=== PATIENT | male | born 1935 | race Two or more races ===

== ENCOUNTER 2016-06-02 20:55 | Emergency (ER) | payer MEDICARE, OTHER ==
[~2016-06-02] VITALS: Ht 170.2 cm; Wt 65.8 kg
[2016-06-02] MEDS ORDERED: IV NORMAL SALINE 1000 ML BAG IV ONE (21:15)
[2016-06-02 21:38] LABS: CALCIUM 7.4 mg/dL (8.5-10.1); CREATININE 1.5 mg/dL (0.6-1.3); POTASSIUM 3.7 mmol/L (3.5-5.1)
[2016-06-02 21:40] LABS: BASOPHILS % (AUTO) 0.1 % (0.0-2.0); EOSINOPHILS # (AUTO) 0.1 K/uL (0.0-0.7); EOSINOPHILS % (AUTO) 0.5 % (0.0-7.0); HEMATOCRIT 29.9 % (40.0-50.0); LYMPHOCYTES % (AUTO) 15.9 % (20.5-51.5); MEAN CORPUSCULAR HEMOGLOBIN 33.4 uug (27.0-31.0); MEAN CORPUSCULAR HGB CONC 34 % (32.0-37.0); MEAN CORPUSCULAR VOLUME 99.7 fL (82.0-92.0); MONOCYTES # (AUTO) 0.9 K/uL (0.1-1.30); MONOCYTES % (AUTO) 7.5 % (0.0-11.0); NEUTROPHILS # (AUTO) 9.3 K/uL (1.8-8.9); PLATELET COUNT (AUTO) 158 K/uL (150-450); RED CELL DISTRIBUTION WIDTH 14.9 % (11.5-14.5); WHITE BLOOD COUNT (AUTO) 12.3 K/uL (4.0-11.2)
[2016-06-02 21:44] LABS: ALBUMIN 2.3 g/dL (3.4-5.0); BILIRUBIN,TOTAL 0.2 mg/dL (0.2-1.0); TOTAL PROTEIN, SERUM 5.6 g/dL (6.4-8.2)
[2016-06-02 21:45] LABS: TROPONIN I < 0.017 ng/mL (0.00-0.056)
[2016-06-02 21:56] LABS: LACTIC ACID 1.1 mmol/L (0.4-2.0)
[2016-06-02] MEDS ORDERED: IOHEXOL 300MG/ML 100 ML INFUS..BTL ONE (22:11)
[2016-06-02] MEDS ORDERED: IV NORMAL SALINE 250 ML IV ONE (22:11)
[2016-06-02] MEDS ORDERED: NORMAL SALINE FLUSH 10 ML DISP.SYRIN ONE (22:11)
[2016-06-02] MEDS ORDERED: METF500T4 PO (22:14)
[2016-06-02] MEDS ORDERED: FOLI1TAB16 PO (22:14)
[2016-06-02] MEDS ORDERED: METO-304 PO (22:14)
[2016-06-02] MEDS ORDERED: OLME1TAB2 PO (22:14)
[2016-06-02] MEDS ORDERED: ESTR2TAB PO (22:14)
[2016-06-02] MEDS ORDERED: PRED10TA PO (22:14)
[2016-06-02] MEDS ORDERED: PANT40TA2 PO (22:14)
[2016-06-02] MEDS ORDERED: ROSU10TA25 PO (22:14)
[2016-06-02] MEDS ORDERED: BLOO-360 IN (22:14)
[2016-06-02] MEDS ORDERED: BEPO10DR OP (22:14)
[2016-06-02] MEDS ORDERED: BUME2TAB3 PO (22:14)
[2016-06-02 23:11] LABS: *OCCULT BLOOD STOOL POSITIVE (NEGATIVE)
[2016-06-02] MEDS ORDERED: BELLADONNA ALKALOIDS PO ONE (23:15)
[2016-06-02] MEDS ORDERED: FAMOTIDINE. 20 MG/2 ML VIAL IV ONE ×2 (23:15→23:32)
[2016-06-02] MEDS ORDERED: MAG HYDROX/AL HYDROX/SIMETH 30 ML LIQUID UDC PO ONE (23:15)
[2016-06-02] MEDS ORDERED: PHENOBARB PO ONE (23:15)
[2016-06-02] MEDS ORDERED: PHENOBARB ONE ×2 (23:31→23:32)
[2016-06-02] MEDS ORDERED: BELLADONNA ALKALOIDS ONE ×2 (23:31→23:32)
[2016-06-02] MEDS ORDERED: MAG HYDROX/AL HYDROX/SIMETH 30 ML LIQUID UDC ONE (23:31)
--- NOTE | 2016-06-02 23:52 | NUR ---
[facility] contacted for transportation home.
--- NOTE | 2016-06-03 00:33 | NUR ---
Patient discharged to home in stable conditon via [facility]. Written and verbal after care instructions given. Patient verbalizes understanding of instructions. Copies of laboratory and radiological studies provided to patient.
[2016-06-03 00:34] VITALS: BP 102/68
== END 2016-06-03 00:35 | disposition home or self-care (01) ==
LOC: ER 20:59
DX: K92.2 Gastrointestinal hemorrhage, unspecified (principal); R10.13 Epigastric pain; I10 Essential (primary) hypertension; E11.9 Type 2 diabetes mellitus without complications
CPT/HCPCS: 36415; 71010; 74177; 80048; 80076; 82270; 83605; 83690; 84484; 85025; 85730; 93005 ×2; 96361; 96374; 99285; A4663; J3490 ×2; J7030; J7050; Q9967; 70030-TC